=== PATIENT | female | born 1945 | race Caucasian/White ===

== ENCOUNTER 2017-01-01 08:15 | Day surgery (SDC) | payer MEDICARE, BC ==
[~2017-01-01 08:15] MED LIST: Cefuroxime 10 MG/ML SYRINGE EYERT SCH; Lidocaine 1% PF 2 ML SDV INJECT SCH; Pilocarpine 4% Ophth Soln 15 ML Bot EYERT SCH
[2017-01-01] MEDS: Polymyxin B/Trimethoprim 10 ML Bottle EYERT SCH ×3 (09:19→11:07)
[2017-01-01] MEDS: Brimonidine 0.2% Ophth Soln 5 ML Bottle EYERT SCH ×3 (09:24→11:07)
[2017-01-01] MEDS: Phenylephrine 2.5% Ophth Soln 2 ML Bot EYERT SCH ×5 (09:30→10:51)
--- NOTE | 2017-01-01 09:31 | PCM.PREANE ---
Preanesthetic Assessment - Anesthesia/Transfusion/Family Hx Anesthesia History: Prior Anesthesia Without Reaction Family History of Anesthesia Reaction: No Transfusion History: No Prior Transfusion(s) - Review of Systems General: No Symptoms Pulmonary: No Symptoms Cardiovascular: Dyspnea on Exertion Gastrointestinal: Abdominal Pain Neurological: No Symptoms Other: Reports: Diabetes, Anxiety - Physical Assessment NPO Status Date: 12/31/16 NPO Status Time: 00:00 Pulse: 74 O2 Sat by Pulse Oximetry: 97 Respiratory Rate: 16 Blood Pressure: 117/65 Temperature: 36.2 C Height: 1.65 m Weight: 80.739 kg ASA Class: 3 Mental Status: Alert & Oriented x3 Airway Class: Mallampati = 2 Dentition: Reports: Caries Thyro-Mental Finger Breadths: 3 Mouth Opening Finger Breadths: 3 ROM/Head Extension: Full Lungs: Clear to Auscultation, Normal Respiratory Effort Cardiovascular: Regular Rate, Regular Rhythm - Allergies Allergies/Adverse Reactions: Allergies Allergy/AdvReac Type Severity Reaction Status Date / Time No Known Allergies Allergy Verified 12/31/16 14:08 - Blood Blood Available: No Product(s) Available: None - Anesthesia Plan Pre-Op Medication Ordered: None - Acknowledgements Anesthesia Type Planned: MAC Pt an Appropriate Candidate for the Planned Anesthesia: Yes Alternatives and Risks of Anesthesia Discussed w Pt/Guardian: Yes Pt/Guardian Understands and Agrees with Anesthesia Plan: Yes PreAnesthesia Questionnaire - HOME MEDS Home Medications: Home Meds Calcium Carbonate [Calcium] 500 mg PO DAILY 12/31/16 [History] Cholecalciferol (Vitamin D3) [Vitamin D3] 1,000 unit PO DAILY 12/31/16 [History] Chromium/Herbal Complex No.238 [Green Tea Caplet] 2 tab PO DAILY 12/31/16 [ History] Fish Oil/[place]-3 Fatty Acids [Fish Oil 1,000 MG] 1 gm PO DAILY 12/31/16 [History ] LORazepam [LORazepam] 1 mg PO TID PRN 12/31/16 [History] Lactobacillus Acidophilus [Probiotic] 1 cap PO DAILY 12/31/16 [History] Magnesium 200 mg PO DAILY 12/31/16 [History] Mirtazapine [Mirtazapine] 7.5 mg PO BEDTIME 12/31/16 [History] Multivitamin [Daily Multiple Vitamin] 1 tab PO DAILY 12/31/16 [History] Rosuvastatin Calcium 5 mg PO DAILY 12/31/16 [History] Vitamin B Complex 1 cap PO DAILY 12/31/16 [History] Vitamin E 1,000 unit PO DAILY 12/31/16 [History] buPROPion HCl [Wellbutrin Xl] 150 mg PO BID 12/31/16 [History] metFORMIN HCl [Metformin HCl] 1,000 mg PO DAILY 12/31/16 [History] traMADol HCl [Tramadol HCl] 50 mg PO Q6H PRN 12/31/16 [History] - CURRENT (IN HOUSE) MEDS Current Meds: Current Medications Brimonidine Tartrate (Alphagan 0.2% Ophth Soln) 0 ml EYERT ASDIRECTED PRUDENCE Stop: 01/01/17 18:00 Last Admin: 01/01/17 09:24 Dose: 1 drop Cefuroxime Sodium (Zinacef) 0 mg EYERT ASDIRECTED PRUDENCE Stop: 01/01/17 18:00 Lidocaine HCl (Xylocaine-Mpf 1%) 10 ml INJECT ASDIRECTED PRUDENCE Stop: 01/01/17 18:00 Phenylephrine HCl (Jac-Synephrine 2.5% Ophth Soln) 0 ml EYERT ASDIRECTED PRUDENCE Stop: 01/01/17 18:00 Pilocarpine HCl (Pilocar 4% Ophth Soln) 0 ml EYERT ASDIRECTED PRUDENCE Stop: 01/01/17 18:00 Polymyxin/Trimethoprim Sulfate (Polytrim Ophth Soln) 0 ml EYERT ASDIRECTED PRUDENCE Stop: 01/01/17 18:00 Last Admin: 01/01/17 09:19 Dose: 1 drop Tetracaine HCl (Tetracaine 0.5% Steri-Unit Latisha) 0 ml EYERT ASDIRECTED PRUDENCE Stop: 01/01/17 18:00 Tropicamide (Mydriacyl 1% Ophth Soln) 0 ml EYERT ASDIRECTED PRUDENCE Stop: 01/01/17 18:00
[2017-01-01] MEDS: Tetracaine HCl/PF 0.5% 4 ML Bottle EYERT SCH ×2 (10:35→10:56)
--- NOTE | 2017-01-01 11:09 | PCM48HPAN ---
Post Anesthesia Note - EVALUATION WITHIN 48HRS OF ANESTHETIC Vital Signs in Normal Range: Yes Patient Participated in Evaluation: Yes Respiratory Function Stable: Yes Airway Patent: Yes Cardiovascular Function Stable: Yes Hydration Status Stable: Yes Pain Control Satisfactory: Yes Nausea and Vomiting Control Satisfactory: Yes Mental Status Recovered: Yes
[2017-01-01 11:24] VITALS: BP 123/60
== END 2017-01-01 11:18 | disposition home or self-care (01) ==
LOC: JD.SDS 08:15
PROVIDERS: ATTEND Ophthalmology
PROC: 08RJ3JZ Replacement of Right Lens with Synthetic Substitute, Percutaneous Approach (ICD-10-PCS; principal; 2017-01-01)
DX: H25.813 Combined forms of age-related cataract, bilateral (principal); H16.223 Keratoconjunctivitis sicca, not specified as Sjogren's, bilateral; H16.103 Unspecified superficial keratitis, bilateral; H02.834 Dermatochalasis of left upper eyelid; H02.831 Dermatochalasis of right upper eyelid; E11.9 Type 2 diabetes mellitus without complications; M19.90 Unspecified osteoarthritis, unspecified site; F41.9 Anxiety disorder, unspecified; F32.9 Major depressive disorder, single episode, unspecified; Z79.84 Long term (current) use of oral hypoglycemic drugs; Z79.899 Other long term (current) drug therapy; Z90.49 Acquired absence of other specified parts of digestive tract; Z96.659 Presence of unspecified artificial knee joint; Z98.84 Bariatric surgery status; Z98.890 Other specified postprocedural states; Z83.518 Family history of other specified eye disorder; Z83.3 Family history of diabetes mellitus; Z87.891 Personal history of nicotine dependence
CPT/HCPCS: 66984; A9270; C1780; J0697

== ENCOUNTER 2017-03-10 06:49 | Day surgery (SDC) | payer MEDICARE, BC ==
[~2017-03-10 06:49] MED LIST changes: +Brimonidine 0.2% Ophth Soln 5 ML Bottle EYELF SCH; +Cefuroxime 10 MG/ML SYRINGE EYELF SCH; -Cefuroxime 10 MG/ML SYRINGE EYERT SCH; +Phenylephrine 2.5% Ophth Soln 2 ML Bot EYELF SCH; +Pilocarpine 4% Ophth Soln 15 ML Bot EYELF SCH; -Pilocarpine 4% Ophth Soln 15 ML Bot EYERT SCH; +Polymyxin B/Trimethoprim 10 ML Bottle EYELF SCH; +Tetracaine HCl/PF 0.5% 4 ML Bottle EYELF SCH
[2017-03-10] MEDS: Polymyxin B/Trimethoprim 10 ML Bottle EYELF SCH ×4 (07:06→08:29)
[2017-03-10] MEDS: Brimonidine 0.2% Ophth Soln 5 ML Bottle EYELF SCH ×4 (07:12→08:29)
[2017-03-10] MEDS: Phenylephrine 2.5% Ophth Soln 2 ML Bot EYELF SCH ×6 (07:17→08:08)
--- NOTE | 2017-03-10 07:17 | PCM.PREANE ---
Preanesthetic Assessment - Anesthesia/Transfusion/Family Hx Anesthesia History: Prior Anesthesia Without Reaction Family History of Anesthesia Reaction: No Transfusion History: No Prior Transfusion(s) - Review of Systems General: No Symptoms Pulmonary: No Symptoms Cardiovascular: No Symptoms Gastrointestinal: Flatus, Other (heartburn) Neurological: No Symptoms Other: Reports: Diabetes, Depression, Anxiety - Physical Assessment NPO Status Date: 03/09/17 NPO Status Time: 23:30 Pulse: 73 O2 Sat by Pulse Oximetry: 99 Respiratory Rate: 16 Blood Pressure: 123/59 Temperature: 36.4 C Vital Signs: Last Vital Signs Temp 36.4 C 03/10/17 07:00 Pulse 73 03/10/17 07:00 Resp 16 03/10/17 07:00 BP 123/59 L 03/10/17 07:00 Pulse Ox 99 03/10/17 07:00 Height: 1.65 m Weight: 78.018 kg ASA Class: 2 Mental Status: Alert & Oriented x3 Airway Class: Mallampati = 2 Dentition: Reports: Normal Dentition Thyro-Mental Finger Breadths: 3 Mouth Opening Finger Breadths: 3 ROM/Head Extension: Full Lungs: Clear to Auscultation, Normal Respiratory Effort Cardiovascular: Regular Rate, Regular Rhythm - Allergies Allergies/Adverse Reactions: Allergies Allergy/AdvReac Type Severity Reaction Status Date / Time No Known Allergies Allergy Verified 03/09/17 15:21 - Blood Blood Available: No Product(s) Available: None - Anesthesia Plan Pre-Op Medication Ordered: None - Acknowledgements Anesthesia Type Planned: MAC Pt an Appropriate Candidate for the Planned Anesthesia: Yes Alternatives and Risks of Anesthesia Discussed w Pt/Guardian: Yes Pt/Guardian Understands and Agrees with Anesthesia Plan: Yes PreAnesthesia Questionnaire - HOME MEDS Home Medications: Home Meds Calcium Carbonate [Calcium] 500 mg PO DAILY 12/31/16 [History] Cholecalciferol (Vitamin D3) [Vitamin D3] 1,000 unit PO DAILY 12/31/16 [History] Chromium/Herbal Complex No.238 [Green Tea Caplet] 2 tab PO DAILY 12/31/16 [ History] Fish Oil/[place]-3 Fatty Acids [Fish Oil 1,000 MG] 1 gm PO DAILY 12/31/16 [History ] LORazepam [LORazepam] 1 mg PO TID PRN 12/31/16 [History] Lactobacillus Acidophilus [Probiotic] 1 cap PO DAILY 12/31/16 [History] Magnesium 200 mg PO DAILY 12/31/16 [History] Mirtazapine [Mirtazapine] 7.5 mg PO BEDTIME 12/31/16 [History] Multivitamin [Daily Multiple Vitamin] 1 tab PO DAILY 12/31/16 [History] Rosuvastatin Calcium 5 mg PO DAILY 12/31/16 [History] Vitamin B Complex 1 cap PO DAILY 12/31/16 [History] Vitamin E 1,000 unit PO DAILY 12/31/16 [History] buPROPion HCl [Wellbutrin Xl] 150 mg PO BID 12/31/16 [History] metFORMIN HCl [Metformin HCl] 1,000 mg PO DAILY 12/31/16 [History] traMADol HCl [Tramadol HCl] 50 mg PO Q6H PRN 12/31/16 [History] - CURRENT (IN HOUSE) MEDS Current Meds: Current Medications Brimonidine Tartrate (Alphagan 0.2% Ophth Soln) 0 ml EYELF ASDIRECTED PRUDENCE Stop: 03/10/17 18:00 Cefuroxime Sodium (Zinacef) 0 mg EYELF ASDIRECTED PRUDENCE Stop: 03/10/17 18:00 Lidocaine HCl (Xylocaine-Mpf 1%) 10 ml INJECT ASDIRECTED PRUDENCE Stop: 03/10/17 18:00 Pilocarpine HCl (Pilocar 4% Ophth Soln) 0 ml EYELF ASDIRECTED PRUDNECE Stop: 03/10/17 18:00 Polymyxin/Trimethoprim Sulfate (Polytrim Ophth Soln) 0 ml EYELF ASDIRECTED PRUDENCE Stop: 03/10/17 18:00 Last Admin: 03/10/17 07:06 Dose: 1 drop Tetracaine HCl (Tetracaine 0.5% Steri-Unit Latisha) 0 ml EYELF ASDIRECTED PRUDENCE Stop: 03/10/17 18:00 Tropicamide (Mydriacyl 1% Ophth Soln) 0 ml EYELF ASDIRECTED PRUDENCE Stop: 03/10/17 18:00 Discontinued Medications Brimonidine Tartrate (Alphagan 0.2% Ophth Soln) 0 ml EYELF ASDIRECTED PRUDENCE Stop: 01/27/17 18:00 Cefuroxime Sodium (Zinacef) 0 mg EYELF ASDIRECTED PRUDENCE Stop: 01/27/17 18:00 Lidocaine HCl (Xylocaine-Mpf 1%) 10 ml INJECT ASDIRECTED PRUDENCE Stop: 01/27/17 18:00 Phenylephrine HCl (Jac-Synephrine 2.5% Ophth Soln) 0 ml EYELF ASDIRECTED PRUDENCE Stop: 01/27/17 18:00 Phenylephrine HCl (Jac-Synephrine 2.5% Ophth Soln) 0 ml EYELF ASDIRECTED PRUDENCE Stop: 03/10/17 06:01 Pilocarpine HCl (Pilocar 4% Ophth Soln) 0 ml EYELF ASDIRECTED PRUDENCE Stop: 01/27/17 18:00 Polymyxin/Trimethoprim Sulfate (Polytrim Ophth Soln) 0 ml EYELF ASDIRECTED PRUDENCE Stop: 01/27/17 18:00 Tetracaine HCl (Tetracaine 0.5% Steri-Unit Latisha) 0 ml EYELF ASDIRECTED PRUDENCE Stop: 01/27/17 18:00 Tropicamide (Mydriacyl 1% Ophth Soln) 0 ml EYELF ASDIRECTED PRUDENCE Stop: 01/27/17 18:00
[2017-03-10] MEDS: Tetracaine HCl/PF 0.5% 4 ML Bottle EYELF SCH ×3 (07:59→08:20)
[2017-03-10] MEDS: Lidocaine 1% PF 2 ML SDV INJECT SCH ×2 (07:59→08:20)
[2017-03-10] MEDS: Cefuroxime 10 MG/ML SYRINGE EYELF SCH ×2 (08:00→08:28)
[2017-03-10] MEDS: Pilocarpine 4% Ophth Soln 15 ML Bot EYELF SCH ×2 (08:01→08:29)
[2017-03-10 08:48] VITALS: BP 115/65
== END 2017-03-10 08:46 | disposition home or self-care (01) ==
LOC: JD.SDS 06:49
PROVIDERS: ATTEND Ophthalmology
DX: H25.042 Posterior subcapsular polar age-related cataract, left eye (principal); H02.831 Dermatochalasis of right upper eyelid; H02.834 Dermatochalasis of left upper eyelid; E11.9 Type 2 diabetes mellitus without complications; F41.9 Anxiety disorder, unspecified; M19.90 Unspecified osteoarthritis, unspecified site; F32.9 Major depressive disorder, single episode, unspecified; Z98.84 Bariatric surgery status; Z96.649 Presence of unspecified artificial hip joint; Z87.891 Personal history of nicotine dependence; Z79.899 Other long term (current) drug therapy; Z79.84 Long term (current) use of oral hypoglycemic drugs; Z90.49 Acquired absence of other specified parts of digestive tract; Z98.41 Cataract extraction status, right eye; Z96.1 Presence of intraocular lens; Z98.890 Other specified postprocedural states
CPT/HCPCS: 66984; J0697; A9270-GY; C1780